=== PATIENT | male | born 2000 | race African-American/Black ===

== ENCOUNTER 2024-06-24 15:05 | Inpatient (IN) | payer MEDICAID, SELFPAY ==
--- OUTSIDE RECORDS SUMMARY | 2024-06-24 15:11 | XMS_ITS ---
Author Name [facility] Organization Unknown Results Test Name/Text Value Interpretation Date Range Source BKR ESTIMATED AVERAGE GLUCOSE 120mg/dL Normal [id number] [facility] Hgb A1c MFr Bld 5.8% Above high normal [id number] 4 - 5.6 [facility] Vit B12 SerPl-mCnc 589pg/mL Normal [id number] 232 - 12 45 [facility] Monocytes # Bld Auto 0.15m8704/uL Normal [id number] 0 - 1 [facility] nRBC/100 WBC Bld Auto-Rto 0% Normal [id number] 0 - 1 [facility] Eosinophil # Bld Auto 0.76q9387/uL Normal [id number] 0 - 1 [facility] nRBC # Bld Auto 0k7953/uL Normal [id number] 0 - 1 [facility] Neutrophils # Bld Auto 2.08r1619/uL Normal [id number] 2 - 7.6 [facility] MCHC RBC Auto-mCnc 32.8g/dL Normal [id number] 31 - 36 [facility] Monocytes/leuk NFr Bld Auto 5.3% Normal [id number] 4 - 12 [facility] Basophils # Bld Auto 0.78q9943/uL Normal [id number] 0 - 1 [facility] WBC # Bld Auto 7.2b1316/uL Normal [id number] 4 - 11 [facility] Hct VFr Bld Auto 43.6% Normal [id number] 38.5 - 50 [facility] RDW RBC Auto-Rto 13.1% Normal [id number] 11 - 15 [facility] PMV Bld Auto 11.6fL Normal [id number] 8 - 12 [facility] Eosinophil/leuk NFr Bld Auto 4% Normal [id number] 0 - 5 [facility] MCH RBC Qn Auto 27.8pg Normal [id number] 27 - 33 [facility] Basophils/leuk NFr Bld Auto 0.1% Normal [id number] 0 - 1.4 [facility] Lymphocytes # Bld Auto 3.28a8755/uL Normal 0.6 - 3.7 [facility] RBC # Bld Auto 5.14M/uL Normal 4 - 6 [facility] Neutrophils/leuk NFr Bld Auto 41.1% Normal 39 - 72 [facility] Imm Granulocytes # Bld Auto 0.11x7014/uL Normal 0 - 0.3 [facility] Platelet # Bld Auto 406e8414/uL Normal 150 - 420 [facility] MCV RBC Auto 84.8fL Normal 80 - 100 [facility] Lymphocytes/leuk NFr Bld Auto 49.4% Normal 17 - 50 [facility] Imm Granulocytes/leuk NFr Bld Auto 0.1% Normal 0 - 1 [facility] Hgb Bld-mCnc 14.3g/dL Normal 13.2 - 17.1 [facility] T pallidum Ab CSF Ql IF Non-Reactive Normal - [facility] BKR TREPONEMA PALLIDUM ANTIBODY INITIAL RESULT 0.1Index Normal [id number] [facility] TSH SerPl DL<=0.005 mIU/L-aCnc 0.894uIU/mL Normal [id number] - [facility] Anion Gap3 SerPl-sCnc 12 Normal 7 - 17 [facility] Creat SerPl-mCnc 0.88mg/dL Normal 0.4 - 1.3 [facility] Albumin/Glob SerPl 1.5 Normal 1 - 2.2 [facility] Albumin SerPl BCG-mCnc 4.2g/dL Normal 3.6 - 5.1 [facility] ALT SerPl w/o P-5'-P-cCnc 15U/L Normal 9 - 59 [facility] Potassium SerPl-sCnc 4.4mmol/L Normal [id number] 3.3 - 5.3 [facility] Bilirub SerPl-mCnc 0.5mg/dL Normal - [facility] Calcium SerPl-mCnc 9.5mg/dL Normal 8.8 - 10 .2 [facility] AST/ALT SerPl-cRto 1.1 Normal - [facility] BUN SerPl-mCnc 13mg/dL Normal 6 - 20 [facility] ALP SerPl-cCnc 130U/L Above high normal 9 - 122 [facility] HCO3 SerPl-sCnc 24mmol/L Normal 20 - 30 [facility] Chloride SerPl-sCnc 106mmol/L Normal 98 - 10 7 [facility] BUN/Creat SerPl 14.8 Normal 8 - 23 [facility] AST SerPl w P-5'-P-cCnc 16U/L Normal 10 - 35 [facility] GFR/BSA.pred SerPlBld VPA-AEQ-LtYDwr 60mL/min/1.73m2 Normal - [facility] Globulin Plas-mCnc 2.8g/dL Normal 2 - 3.9 [facility] Prot SerPl-mCnc 7g/dL Normal 5.9 - 8.3 [facility] Sodium SerPl-sCnc 142mmol/L Normal 136 - 144 [facility] Glucose SerPl-mCnc 76mg/dL Normal 70 - 100 [facility] Cholest/HDLc SerPl 3.1 Normal 0 - 5 [facility] LDLc SerPl Calc-mCnc 74mg/dL Normal - [facility] HDLc SerPl-mCnc 43mg/dL Normal - [facility] Trigl SerPl-mCnc 88mg/dL Normal - [facility] Cholest SerPl-mCnc 134mg/dL Normal [id number] - [facility] BKR DRUGS OF ABUSE NOTE Normal [facility] Benzodiaz Ur Ql Scn Negative Normal [id number] - [facility] BKR METHADONE METABOLITE SCREEN, URINE, W/ CONF. Negative Normal [id number] - [facility] oxyCODONE Ur Ql Scn Negative Normal [id number] - [facility] PCP Ur Ql Scn>25 ng/mL Negative Normal [id number] - [facility] Barbiturates Ur Ql Scn Negative Normal [id number] - [facility] Cannabinoids Ur Ql Scn Positive Abnormal - [facility] BZE Ur Ql Scn Negative Normal [id number] - [facility] Opiates Ur Ql Scn Negative Normal - [facility] Amphetamines Ur Ql Scn Negative Normal - [facility] BKR ESTIMATED AVERAGE GLUCOSE 120mg/dL Normal [id number] [facility] Hgb A1c MFr Bld 5.8% Above high normal [id number] 4 - 5.6 [facility] Cholest/HDLc SerPl 2.7 Normal [id number] 0 - 5 [facility] LDLc SerPl Calc-mCnc 56mg/dL Normal [id number] - [facility] HDLc SerPl-mCnc 38mg/dL Below low normal [id number] - [facility] Trigl SerPl-mCnc 35mg/dL Normal [id number] - [facility] Cholest SerPl-mCnc 104mg/dL Normal [id number] - [facility] BKR DRUGS OF ABUSE NOTE Normal [id number] [facility] Benzodiaz Ur Ql Scn Negative Normal [id number] - [facility] BKR METHADONE METABOLITE SCREEN, URINE, W/ CONF. Negative Normal [id number] - [facility] oxyCODONE Ur Ql Scn Negative Normal [id number] - [facility] PCP Ur Ql Scn>25 ng/mL Negative Normal [id number] - [facility] Barbiturates Ur Ql Scn Negative Normal [id number] - [facility] Cannabinoids Ur Ql Scn Positive Abnormal - [facility] BZE Ur Ql Scn Negative Normal - [facility] Opiates Ur Ql Scn Negative Normal - [facility] Amphetamines Ur Ql Scn Negative Normal - [facility] TSH SerPl DL<=0.005 mIU/L-aCnc 0.755uIU/mL Normal - [facility] ALP SerPl-cCnc 84U/L Normal 9 - 122 [facility] AST/ALT SerPl-cRto 1.3 Normal - [facility] Glucose SerPl-mCnc 89mg/dL Normal 70 - 100 [facility] Chloride SerPl-sCnc 108mmol/L Above high normal 98 - 107 [facility] BUN SerPl-mCnc 15mg/dL Normal 6 - 20 [facility] Calcium SerPl-mCnc 9mg/dL Normal 8.8 - 10 .2 [facility] ALT SerPl w/o P-5'-P-cCnc 13U/L Normal 9 - 59 [facility] Sodium SerPl-sCnc 143mmol/L Normal 136 - 144 [facility] Globulin Plas-mCnc 2.2g/dL Below low normal 2 .3 - 3.5 [facility] Anion Gap3 SerPl-sCnc 9 Normal 7 - 17 [facility] AST SerPl w P-5'-P-cCnc 17U/L Normal 10 - 35 [facility] GFR/BSA.pred SerPlBld NWP-SVO-DfUPkt 60mL/min/1.73m2 Normal - [facility] HCO3 SerPl-sCnc 26mmol/L Normal 20 - 30 [facility] Potassium SerPl-sCnc 3.9mmol/L Normal 3.3 - 5.3 [facility] Albumin SerPl BCG-mCnc 4g/dL Normal 3.6 - 4.9 [facility] Creat SerPl-mCnc 0.75mg/dL Normal 0.4 - 1.3 [facility] BUN/Creat SerPl 20 Normal 8 - 23 [facility] Albumin/Glob SerPl 1.8 Normal 1 - 2.2 [facility] Bilirub SerPl-mCnc 0.6mg/dL Normal - [facility] Prot SerPl-mCnc 6.2g/dL Below low normal 6.6 - 8.7 [facility] MCH RBC Qn Auto 27.9pg Normal 27 - 33 [facility] RBC # Bld Auto 4.59M/uL Normal 4 - 6 [facility] Lymphocytes # Bld Auto 3.04f7118/uL Normal 0.6 - 3.7 [facility] Neutrophils/leuk NFr Bld Auto 57.4% Normal 39 - 72 [facility] Lymphocytes/leuk NFr Bld Auto 31.7% Normal 17 - 50 [facility] PMV Bld Auto 10.6fL Normal [id number] 8 - 12 [facility] BKR WAM BASOPHIL ABSOLUTE COUNT. 0.38e2738/uL Normal [id number] 0 - 1 [facility] Imm Granulocytes # Bld Auto 0.79p8098/uL Normal 0 - 0.3 [facility] Monocytes/leuk NFr Bld Auto 7.1% Normal [id number] 4 - 12 [facility] Basophils/leuk NFr Bld Auto 0.2% Normal [id number] 0 - 1.4 [facility] nRBC/100 WBC Bld Auto-Rto 0% Normal [id number] 0 - 1 [facility] MCHC RBC Auto-mCnc 33.2g/dL Normal 31 - 36 [facility] Monocytes # Bld Auto 0.64j3534/uL Normal [id number] 0 - 1 [facility] Hct VFr Bld Auto 38.6% Normal [id number] 38.5 - 50 [facility] Eosinophil/leuk NFr Bld Auto 3.3% Normal [id number] 0 - 5 [facility] Neutrophils # Bld Auto 6.95d5789/uL Normal [id number] 2 - 7.6 [facility] Platelet # Bld Auto 093v7894/uL Normal [id number] 150 - 420 [facility] RDW RBC Auto-Rto 13.2% Normal [id number] 11 - 15 [facility] Imm Granulocytes/leuk NFr Bld Auto 0.3% Normal [id number] 0 - 1 [facility] Eosinophil # Bld Auto 0.56d7126/uL Normal [id number] 0 - 1 [facility] Hgb Bld-mCnc 12.8g/dL Below low normal [id number] 13.2 - 17.1 [facility] nRBC # Bld Auto 1c5672/uL Normal [id number] 0 - 1 [facility] MCV RBC Auto 84.1fL Normal [id number] 80 - 100 [facility] WBC # Bld Auto 11.1a0481/uL Above high normal [id number] 4 - 11 [facility]
[2024-06-24 15:58] VITALS: BP 106/67; PULSE 54; RESP 16; TEMP 36.6; O2SAT 99
[2024-06-24 15:59] VITALS: BMI 18.9
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
[2024-06-24] MEDS: Flu Vacc TS2024-25(6mos up)/PF 0.5 ML SYRINGE IM (17:31)
[2024-06-25 08:00] VITALS: BP 106/68; PULSE 73; RESP 16; TEMP 36.9; O2SAT 100
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
[2024-06-25 20:00] VITALS: BP 126/64; PULSE 75; RESP 18; TEMP 37.2; O2SAT 99
[2024-06-26 08:00] VITALS: BP 110/67; PULSE 68; RESP 16; TEMP 36.6; O2SAT 99
--- NOTE | 2024-06-26 10:29 | P.PNPSI_ITS ---
Subjective Subjective Date of Service: 06/26/24 Reason For Visit: PTSD; schizophrenia disorder, anxiety Medical Problems Affecting Mental Status: No Interim History: Paranoid ref unit. Talking to self. Irritable. Declining meds. Denied SI when asked directly. Very guarded and limited interview. Medication Compliance: No Side effects from medications: No Attending Groups: No Review of Systems Acute medical concerns: No Review of Systems Review of Systems Nothing acute Mental Status Exam Mental Status Exam Narrative: Very guarded. Hospital clothing. Fair hygiene. Thought form there is evidence of some blocking at times and difficulty in giving detail and conversation can be quite circular at times. Is paranoid and internally preoccupied. No SI or HI. Insight and judgment limited Diagnostics Vital Signs (24Hr): Vital Signs - 24 hr 06/25/24 20:00 Temperature 99.0 F Pulse Rate 75 Respiratory Rate 18 Blood Pressure 126/64 Pulse Oximetry 99 Oxygen Delivery Method Room Air BMI result Body Mass Index 18.9 Medications Medications Current Medications Acetaminophen (Acetaminophen 325 Mg Tablet) 650 mg PO Q6H PRN PRN Reason: Headache/Pain Mild Scale (1-3) Al Hydroxide/Mg Hydroxide (Magnesium Hydrox/Alum Hydrox 30 Ml Oral.Susp) 30 ml PO Q6H PRN PRN Reason: Heartburn/Nausea Benztropine Mesylate (Benztropine Mesylate 1 Mg Tablet) 1 mg PO BID [facility] Last Admin: 06/26/24 09:24 Dose: Not Given Hydroxyzine HCl (Hydroxyzine Hcl 25 Mg Tablet) 25 mg PO Q6H PRN PRN Reason: Anxiety Magnesium Hydroxide (Milk Of Magnesia 30 Ml Oral.Susp) 30 ml PO DAILY PRN PRN Reason: Constipation Nicotine (Nicotine 21 Mg Patch.Td24) 21 mg TRANSDERMA DAILY PRN PRN Reason: Nicotine Cravings Nicotine Polacrilex (Nicotine Polacrilex 2 Mg Gum) 4 mg BUCCAL Q2H PRN PRN Reason: Nicotine Cravings Olanzapine (Olanzapine 5 Mg Tablet) 5 mg PO Q4H PRN PRN Reason: psychosis, agitation Paliperidone (Paliperidone Er 3 Mg Tab.Er.24) 3 mg PO DAILY [facility] Last Admin: 06/26/24 09:24 Dose: Not Given Sumatriptan Succinate (Sumatriptan Succinate 50 Mg Tablet) 50 mg PO DAILY PRN PRN Reason: Migraine Headache Trazodone HCl (Trazodone Hcl 50 Mg Tablet) 50 mg PO BEDTIME MRX1 PRN PRN Reason: Insomnia Allergies Allergies Allergy/AdvReac Type Severity Reaction Status Date / Time No Known Allergies Allergy Verified 06/24/24 16:18 Assessment & Plan Assessment & Plan (1) Schizophrenia: Status: Acute Code(s): F20.9 - Schizophrenia, unspecified Plan presents with schizophrenia, also medication nonadherence, psychosocial stressors, paranoia and bizarre delusions. Invega and Cogentin ordered and will continue to encourage adherence. unclear community supports. Mental health services in [facility]. Otherwise voluntary admission and establishing report 06/26: establish rapport. Might need to revoke CV or discharge if continues to decline meds Reason for continued inpatient stay Substantial Risk for: inability to function Time Spent With Patient Time: Total time managing care of this patient today ____ minutes.
[2024-06-27 08:00] VITALS: BP 102/66; PULSE 74; TEMP 36.6; O2SAT 98
--- NOTE | 2024-06-27 13:59 | P.PNPSI_ITS ---
Subjective Subjective Date of Service: 06/27/24 Reason For Visit: PTSD; schizophrenia disorder, anxiety Interim History: met with patient; discussed with team; reviewed chart pt responding to internal stimuli, talking to himself during interview. Talking about getting cyber threats on his phone. He explains by saying while watching [employer], an add popped up with a picture of a man that looked like his brother; from this (only) he knew that it was a threat on his brothers life, especially since he's been getting subliminal messages that he hears which confirms the same. Pt also says he enters into coma like states, which he has trouble describing but has concerns regarding. Pt talked about having a Tick in his throat that secretes fluids... he does not want medication for help with this; marketing underwriter reviewed past med trials but patient did not want to engage much on this topic. says all this started in 2019 Reports last admission was in December 2023 at [facility] for approximately 6 weeks. Mental Status Exam Mental Status Exam Narrative: Pt is alert and oriented; behavior is isolative, guarded but not uncooperative, talking to himself, drawing on his hand; patient is not in distress; dressed in casual attire, wearing eye glasses with duck tape on both rims, unkempt; mood is described as ok and affect constricted; eye contact avoidant; Speech is a neris le soft, but normal rate; some psychomotor retardation present; thought process is goal directed; Thought content is on paranoid delusional ideas; denies any SI/HI. Denies AVH but is internally preoccupied and self-diaglouging, at time shaving full conversations with himself, oblivious another is present. Patients insight and judgment impaired. Diagnostics Vital Signs (24Hr): Vital Signs - 24 hr 06/27/24 08:00 Temperature 97.8 F Pulse Rate 74 Blood Pressure 102/66 Pulse Oximetry 98 Oxygen Delivery Method Room Air BMI result Body Mass Index 18.9 Medications Medications Current Medications Acetaminophen (Acetaminophen 325 Mg Tablet) 650 mg PO Q6H PRN PRN Reason: Headache/Pain Mild Scale (1-3) Al Hydroxide/Mg Hydroxide (Magnesium Hydrox/Alum Hydrox 30 Ml Oral.Susp) 30 ml PO Q6H PRN PRN Reason: Heartburn/Nausea Benztropine Mesylate (Benztropine Mesylate 1 Mg Tablet) 1 mg PO BID [facility] Last Admin: 06/27/24 10:12 Dose: Not Given Hydroxyzine HCl (Hydroxyzine Hcl 25 Mg Tablet) 25 mg PO Q6H PRN PRN Reason: Anxiety Magnesium Hydroxide (Milk Of Magnesia 30 Ml Oral.Susp) 30 ml PO DAILY PRN PRN Reason: Constipation Nicotine (Nicotine 21 Mg Patch.Td24) 21 mg TRANSDERMA DAILY PRN PRN Reason: Nicotine Cravings Nicotine Polacrilex (Nicotine Polacrilex 2 Mg Gum) 4 mg BUCCAL Q2H PRN PRN Reason: Nicotine Cravings Olanzapine (Olanzapine 5 Mg Tablet) 5 mg PO Q4H PRN PRN Reason: psychosis, agitation Paliperidone (Paliperidone Er 3 Mg Tab.Er.24) 3 mg PO DAILY [facility] Last Admin: 06/27/24 10:12 Dose: Not Given Sumatriptan Succinate (Sumatriptan Succinate 50 Mg Tablet) 50 mg PO DAILY PRN PRN Reason: Migraine Headache Trazodone HCl (Trazodone Hcl 50 Mg Tablet) 50 mg PO BEDTIME MRX1 PRN PRN Reason: Insomnia Allergies Allergies Allergy/AdvReac Type Severity Reaction Status Date / Time No Known Allergies Allergy Verified 06/24/24 16:18 Assessment & Plan Assessment & Plan (1) Schizophrenia: Status: Acute Code(s): F20.9 - Schizophrenia, unspecified Plan presents with schizophrenia, also medication nonadherence, psychosocial stressors, paranoia and bizarre delusions. Invega and Cogentin ordered and will continue to encourage adherence. unclear community supports. Mental health services in [facility]. Otherwise voluntary admission and establishing report HOSPITAL COURSE: 06/26: establish rapport. Might need to revoke CV or discharge if continues to decline meds 06/27 pt responding to internal stimuli, talking to himself during interview. Talking about getting cyber threats on his phone. He explains by saying while watching [employer], an add popped up with a picture of a man that looked like his brother; from this (only) he knew that it was a threat on his brothers life, especially since he's been getting subliminal messages that he hears which confirms the same. Pt also says he enters into coma like states, which he has trouble describing but has concerns regarding. Pt talked about having a Tick in his throat that secretes fluids... -he does not want medication for help with this; marketing underwriter reviewed past med trials but patient did not want to engage much on this topic. -says all this started in 2019 Reports last admission was in December 2023 at [facility] for approximately 6 weeks. impression: psychotic with paranoid delusions; no insight PLAN: CV q15's refusing to take Invega or other meds for psychosis need collateral Patient educated on: diagnosis and medication risk/benefits Informed Consent: does not understand Reason for continued inpatient stay Substantial Risk for: inability to function Time Spent With Patient Time: Total time managing care of this patient today ____ minutes.
[2024-06-28 08:00] VITALS: BP 115/79; PULSE 87; RESP 16; TEMP 36.7; O2SAT 99
--- NOTE | 2024-06-28 22:03 | P.PNPSI_ITS ---
Subjective Subjective Date of Service: 06/28/24 Reason For Visit: PTSD; schizophrenia disorder, anxiety Interim History: met with patient; discussed with team pt remains guarded, isolating, drawing symbols on his hands/arm; he remains preoccupied with paranoid delusions and says im in psychological torture...i'm in mental pain... and refers to people trying to get his attention, but is unable to articulate who exactly; says not getting subliminal messages since no Wifi; he alludes to people on the unit and says i'm isolating in my room to avoid medical malpractice... -tried again to discuss medication but pt remains disinterested in room by himself, talking to himself, gesticulating unaware of staff presence. Mental Status Exam Mental Status Exam Narrative: Pt is alert and oriented; behavior is isolative, guarded but not uncooperative, talking to himself, drawing on his hand; patient is not in distress; dressed in casual attire, today not wearing eye glasses (with duck tape on both rims), unkempt; mood is described as ok and affect constricted; eye contact avoidant; Speech is a little soft, but normal rate; some psychomotor retardation present; thought process is goal directed; Thought content is on paranoid delusional ideas; denies any SI/HI. Denies AVH but is internally preoccupied and self- diaglouging, at time shaving full conversations with himself, oblivious another is present. Patients insight and judgment impaired. Diagnostics Vital Signs (24Hr): Vital Signs - 24 hr 06/28/24 08:00 Temperature 98.1 F Pulse Rate 87 Respiratory Rate 16 Blood Pressure 115/79 Pulse Oximetry 99 Oxygen Delivery Method Room Air BMI result Body Mass Index 18.9 Medications Medications Current Medications Acetaminophen (Acetaminophen 325 Mg Tablet) 650 mg PO Q6H PRN PRN Reason: Headache/Pain Mild Scale (1-3) Al Hydroxide/Mg Hydroxide (Magnesium Hydrox/Alum Hydrox 30 Ml Oral.Susp) 30 ml PO Q6H PRN PRN Reason: Heartburn/Nausea Benztropine Mesylate (Benztropine Mesylate 1 Mg Tablet) 1 mg PO BID [facility] Last Admin: 06/28/24 20:34 Dose: Not Given Hydroxyzine HCl (Hydroxyzine Hcl 25 Mg Tablet) 25 mg PO Q6H PRN PRN Reason: Anxiety Magnesium Hydroxide (Milk Of Magnesia 30 Ml Oral.Susp) 30 ml PO DAILY PRN PRN Reason: Constipation Nicotine (Nicotine 21 Mg Patch.Td24) 21 mg TRANSDERMA DAILY PRN PRN Reason: Nicotine Cravings Nicotine Polacrilex (Nicotine Polacrilex 2 Mg Gum) 4 mg BUCCAL Q2H PRN PRN Reason: Nicotine Cravings Olanzapine (Olanzapine 5 Mg Tablet) 5 mg PO Q4H PRN PRN Reason: psychosis, agitation Paliperidone (Paliperidone Er 3 Mg Tab.Er.24) 3 mg PO DAILY [facility] Last Admin: 06/28/24 08:43 Dose: Not Given Sumatriptan Succinate (Sumatriptan Succinate 50 Mg Tablet) 50 mg PO DAILY PRN PRN Reason: Migraine Headache Trazodone HCl (Trazodone Hcl 50 Mg Tablet) 50 mg PO BEDTIME MRX1 PRN PRN Reason: Insomnia Allergies Allergies Allergy/AdvReac Type Severity Reaction Status Date / Time No Known Allergies Allergy Verified 06/24/24 16:18 Assessment & Plan Assessment & Plan (1) Schizophrenia: Status: Acute Code(s): F20.9 - Schizophrenia, unspecified Plan presents with schizophrenia, also medication nonadherence, psychosocial stressors, paranoia and bizarre delusions. Invega and Cogentin ordered and will continue to encourage adherence. unclear community supports. Mental health services in [facility]. Otherwise voluntary admission and establishing report HOSPITAL COURSE: 06/26: establish rapport. Might need to revoke CV or discharge if continues to decline meds 06/27 pt responding to internal stimuli, talking to himself during interview. Talking about getting cyber threats on his phone. He explains by saying while watching [employer], an add popped up with a picture of a man that looked like his brother; from this (only) he knew that it was a threat on his brothers life, especially since he's been getting subliminal messages that he hears which confirms the same. Pt also says he enters into coma like states, which he has trouble describing but has concerns regarding. Pt talked about having a Tick in his throat that secretes fluids... -he does not want medication for help with this; financial underwriter reviewed past med trials but patient did not want to engage much on this topic. -says all this started in 2019 Reports last admission was in December 2023 at [facility] for approximately 6 weeks. 06/28 pt remains guarded, isolating, drawing symbols on his hands/arm; he remains preoccupied with paranoid delusions and says im in psychological torture...i'm in mental pain... and refers to people trying to get his attention, but is unable to articulate who exactly; says not getting subliminal messages since no Wifi; he alludes to people on the unit and says i'm isolating in my room to avoid medical malpractice... -tried again to discuss medication but pt remains disinterested -earlier, in room by himself, talking to himself, gesticulating unaware of staff presence. impression: psychotic with paranoid delusions; no insight PLAN: CV q15's refusing to take Invega or other meds for psychosis need collateral Patient educated on: diagnosis and medication risk/benefits Informed Consent: does not understand Reason for continued inpatient stay Substantial Risk for: inability to function Time Spent With Patient Time: Total time managing care of this patient today ____ minutes.
[2024-06-29 08:00] VITALS: BP 145/69; PULSE 80; RESP 16; TEMP 37; O2SAT 98
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
[2024-06-29 20:00] VITALS: RESP 16
[2024-06-30 07:58] VITALS: RESP 16
[2024-06-30 20:00] VITALS: RESP 18
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
[2024-07-01 07:55] VITALS: RESP 18
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
--- NOTE | 2024-07-01 21:41 | PC.NURSE ---
Patient was in bathroom when this commercial insurance underwriter attempted to assess and medicate. This commercial insurance underwriter heard the toilet flush. The patient then said NO. This commercial insurance underwriter stated I have a medication for you. The patient again said NO. When the patient came out, he said to this commercial insurance underwriter Do the thing and NO and waved his hand at this commercial insurance underwriter in the doorway. When this commercial insurance underwriter said Do what thing? the patient said NO. You know. DO THE THING and again flapped his hand at this commercial insurance underwriter, as if shooing this commercial insurance underwriter away. This commercial insurance underwriter stepped back. At that point, the patient slammed the door of the room loudly between this commercial insurance underwriter and the patient, ending the interaction.
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
[2024-07-04 08:00] VITALS: RESP 14
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
--- NOTE | 2024-07-04 20:56 | PC.NURSE ---
Patient emerged from his room at approximately 2044. He was irritated and stated I'm the only person here. Why is my door closed? Why are people opening my door when I'm the only person here? I want my door OPEN. This creative writer was unable to redirect the patient, so this creative writer disengaged from this patient. The patient went back into his room at that time.
--- NOTE | 2024-07-04 21:11 | PC.NURSE ---
At approximately 2100, this greeting card writer was informed that this patient had removed the elastic parts of his fitted sheets and was using same as a belt. Given that this was a ligature risk, this greeting card writer and two staff members attempted to convince the patient to give the ligature risk to us. He was resistant, so this greeting card writer called for security to assist. Before security arrived, a staff member had convinced the patient to give up the ligature risk. This greeting card writer requested that staff remove all fitted sheets and replace same with flat sheets that cannot be torn up as easily. This incident will be passed on via the report packet.
[2024-07-05 08:00] VITALS: RESP 14
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
[2024-07-05 20:00] VITALS: RESP 16
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
[2024-07-07 08:00] VITALS: RESP 18
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
[2024-07-07 19:45] VITALS: BP 138/86; PULSE 114; RESP 16; TEMP 36.9; O2SAT 97
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
[2024-07-08 20:00] VITALS: RESP 16
[2024-07-09 08:00] VITALS: RESP 18
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
[2024-07-13 07:55] VITALS: RESP 18
[2024-07-13] MEDS: Paliperidone ER 6 MG TAB.ER.24 PO (08:49)
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
[2024-07-14 08:00] VITALS: RESP 18
[2024-07-14] MEDS: Paliperidone ER 6 MG TAB.ER.24 PO (08:25)
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
[2024-07-15 08:00] VITALS: RESP 14
[2024-07-15] MEDS: Paliperidone ER 9 MG TAB.ER.24 PO (09:36)
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
[2024-07-16 08:00] VITALS: BP 126/76; PULSE 115; RESP 18; TEMP 36.4; O2SAT 99
[2024-07-16] MEDS: Paliperidone ER 9 MG TAB.ER.24 PO (09:05)
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
[2024-07-16 20:00] VITALS: BP 162/79; PULSE 110; TEMP 37.2; O2SAT 98
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
[2024-07-17] MEDS: Paliperidone ER 9 MG TAB.ER.24 PO (08:54)
[2024-07-17 19:46] VITALS: BP 123/75; PULSE 116; TEMP 36.8; O2SAT 98
[2024-07-18] MEDS: Paliperidone ER 9 MG TAB.ER.24 PO (09:17)
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
[2024-07-19] MEDS: Paliperidone ER 9 MG TAB.ER.24 PO (09:32)
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
[2024-07-19 19:39] VITALS: BP 120/97; PULSE 120; TEMP 36.4; O2SAT 99
[2024-07-20 08:28] VITALS: BP 109/70; PULSE 80; RESP 16; TEMP 36.3; O2SAT 98
[2024-07-20] MEDS: Paliperidone ER 9 MG TAB.ER.24 PO (08:29)
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
[2024-07-20 20:00] VITALS: BP 122/78; TEMP 36.5; O2SAT 98
[2024-07-21] MEDS: Paliperidone ER 9 MG TAB.ER.24 PO (09:00)
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
[2024-07-21 20:00] VITALS: BP 131/71; PULSE 112; TEMP 36.6; O2SAT 99
[2024-07-22 08:00] VITALS: RESP 16
[2024-07-22] MEDS: Paliperidone ER 9 MG TAB.ER.24 PO (09:01)
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
[2024-07-22 20:00] VITALS: BP 119/73; PULSE 110; RESP 18; TEMP 36.7; O2SAT 98
[2024-07-23 08:00] VITALS: RESP 18
[2024-07-23] MEDS: Paliperidone ER 6 MG TAB.ER.24 12 MG PO (09:36)
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
[2024-07-23] MEDS: Melatonin 3 MG TABLET PO (21:18)
[2024-07-24 08:00] VITALS: RESP 18
[2024-07-24] MEDS: Paliperidone ER 6 MG TAB.ER.24 12 MG PO (12:21)
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
[2024-07-24 20:00] VITALS: BP 143/69; PULSE 105; RESP 15; TEMP 36.2; O2SAT 98
[2024-07-24] MEDS: Melatonin 3 MG TABLET PO (20:46)
[2024-07-25 08:00] VITALS: RESP 16
[2024-07-25] MEDS: Paliperidone ER 6 MG TAB.ER.24 12 MG PO (09:12)
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
[2024-07-25 20:00] VITALS: BP 119/71; PULSE 102; RESP 16; O2SAT 99
[2024-07-25] MEDS: Melatonin 3 MG TABLET PO (20:37)
[2024-07-26 08:00] VITALS: RESP 14
[2024-07-26] MEDS: Paliperidone ER 9 MG TAB.ER.24 PO (09:17)
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
[2024-07-26 20:00] VITALS: BP 134/69; PULSE 96; TEMP 36.6; O2SAT 98
[2024-07-26] MEDS: Melatonin 3 MG TABLET PO (21:47)
[2024-07-26] MEDS: Paliperidone ER 3 MG TAB.ER.24 PO (21:47)
[2024-07-27 08:00] VITALS: RESP 18
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
[2024-07-27 20:00] VITALS: RESP 16; TEMP 36.4
[2024-07-27] MEDS: Paliperidone ER 6 MG TAB.ER.24 12 MG PO (20:21)
[2024-07-27] MEDS: Melatonin 3 MG TABLET PO (20:21)
[2024-07-27] MEDS: traZODone HCL 50 MG TABLET PO (20:21)
[2024-07-28 07:00] VITALS: BMI 22.7
[2024-07-28 08:00] VITALS: RESP 18
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
[2024-07-28 20:00] VITALS: RESP 18
[2024-07-28] MEDS: Melatonin 3 MG TABLET PO (21:16)
[2024-07-28] MEDS: Paliperidone ER 6 MG TAB.ER.24 12 MG PO (21:16)
[2024-07-29 08:00] VITALS: RESP 18
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
[2024-07-29 20:00] VITALS: BP 126/71; PULSE 82; TEMP 36.4; O2SAT 98
[2024-07-29] MEDS: Melatonin 3 MG TABLET PO (20:02)
[2024-07-29] MEDS: Paliperidone ER 6 MG TAB.ER.24 12 MG PO (20:02)
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
== END 2024-07-30 19:33 | disposition home or self-care (01) | DRG 750 ==
PROVIDERS: Admitting Provider Clinical Nurse Specialist Psychiatric/Mental Health, Adult; Visit Provider Psychiatry & Neurology Psychiatry
DX: F20.9 Schizophrenia, unspecified (principal); Z91.148 Patient's other noncompliance with medication regimen for other reason; F17.210 Nicotine dependence, cigarettes, uncomplicated; J45.909 Unspecified asthma, uncomplicated; F90.9 Attention-deficit hyperactivity disorder, unspecified type; Z23 Encounter for immunization; Z71.6 Tobacco abuse counseling; Z59.02 Unsheltered homelessness; Z79.899 Other long term (current) drug therapy
CPT/HCPCS: 90656

== ENCOUNTER → 2024-06-24 15:05 | Outpatient (BNV) | payer MEDICAID, SELFPAY | PROVIDERS: Admitting Provider Clinical Nurse Specialist Psychiatric/Mental Health, Adult; Visit Provider Psychiatry & Neurology Psychiatry | DX: F20.0 Paranoid schizophrenia (principal) | CPT/HCPCS: 90792; 99231; 99232 ==

== ENCOUNTER → 2024-06-24 15:05 | Outpatient (BNV) | payer MEDICAID, SELFPAY | PROVIDERS: Admitting Provider Clinical Nurse Specialist Psychiatric/Mental Health, Adult; Visit Provider Student in an Organized Health Care Education/Training Program | DX: J45.909 Unspecified asthma, uncomplicated (principal) | CPT/HCPCS: 99221 ==